=== PATIENT | female | born 1995 | race American Indian/Alaskan Native ===

== ENCOUNTER 2020-10-14 12:43 | Outpatient (CLI) | payer OTHER ==
[2020-10-14 13:05] VITALS: BP 121/67
[2020-10-14] MEDS ORDERED: LACTATED RINGERS 1,000 ML ONE (14:16)
[2020-10-14] MEDS ORDERED: LACTATED RINGERS 1,000 ML IV ONE (14:22)
--- NOTE | 2020-10-14 14:35 | Ultrasound Report ---
ULTRASOUND OBSTETRIC LIMITED ULTRASOUND BIOPHYSICAL PROFILE INDICATION / CLINICAL INFORMATION: decreased FM. Clinical Gestational Age (GA): 31.5 weeks.days COMPARISON: None available. FINDINGS: BREATHING MOVEMENT = 2 GROSS BODY MOVEMENT = 2 TONE = 2 QUALITATIVE AMNIOTIC FLUID VOLUME = 2 TOTAL BIOPHYSICAL SCORE = 8/8 HEART RATE (beats per minute): 164 AMNIOTIC FLUID INDEX (cm) = Largest pocket measures 4 cm. PRESENTATION: Cephalic. ADDITIONAL FINDINGS: None. IMPRESSION: 1. Biophysical Score = 8/8 Signer Name: Juan J Guerin MD Signed: 10/14/2020 2:31 PM Workstation Name: [email or web address]
[2020-10-14 14:44] LABS: Basophils % (Auto) 0.1 % (0.0-1.8); Eosinophils # (Auto) 0.1 K/mm3 (0.0-0.4); Eosinophils % (Auto) 0.7 % (0.0-4.3); Hematocrit 28.4 % (30.3-42.9); Hemoglobin 9.4 gm/dl (10.1-14.3); Lymphocytes # (Auto) 2.9 K/mm3 (1.2-5.4); Lymphocytes % (Auto) 14.2 % (13.4-35.0); Mean Corpuscular HGB Conc 33 % (30-34); Mean Corpuscular Volume 74 fl (79-97); Monocytes # (Auto) 1.7 K/mm3 (0.0-0.8); Monocytes % (Auto) 8.5 % (0.0-7.3); Platelet Count 197 K/mm3 (140-440); Red Blood Count 3.83 M/mm3 (3.65-5.03); Red Cell Distribution Width 15.2 % (13.2-15.2)
[2020-10-14 15:59] LABS: Bilirubin,Urine NEG (Negative); Blood,Urine NEG (Negative); Color,Urine Straw (Yellow); Protein,Urine <15 mg/dL mg/dL (Negative); Urobilinogen,Urine < 2.0 mg/dL (<2.0)
== END 2020-10-14 16:50 | disposition home or self-care (01) ==
LOC: TRG 12:43 → APU 12:44 → TRG 16:50
PROVIDERS: ATTEND Obstetrics & Gynecology
DX: O36.8130 Decreased fetal movements, third trimester, not applicable or unspecified (principal); O47.03 False labor before 37 completed weeks of gestation, third trimester; Z3A.31 31 weeks gestation of pregnancy
CPT/HCPCS: 36415; 59025; 76819; 81001; 85025; 96360; J7120

== ENCOUNTER 2020-11-09 18:55 | Outpatient (CLI) | payer OTHER ==
[2020-11-09 19:16] VITALS: BP 118/70
[2020-11-09] MEDS ORDERED: LACTATED RINGERS 500 ML IV ONE (19:19)
--- NOTE | 2020-11-09 20:42 | Ultrasound Report ---
US OB BPP wo non-stress INDICATION / CLINICAL INFORMATION: BPP r/t decreased FM. COMPARISON: None available. FINDINGS: Single, viable intrauterine . heart rate 145. Biophysical profile breathing movements: 2 movements: 2 posture and tone: 2 Amniotic fluid volume: 2 Total score 8/8 IMPRESSION: 1. Viable intrauterine . Biophysical profile score of 8/8. Signer Name: Keyshawn Luna MD Signed: 11/09/2020 8:38 PM Workstation Name: [id number]
== END 2020-11-09 20:14 | disposition home or self-care (01) ==
LOC: TRG 18:55 → APU 18:59 → TRG 20:14
PROVIDERS: ATTEND Obstetrics & Gynecology
DX: O36.8130 Decreased fetal movements, third trimester, not applicable or unspecified (principal); Z3A.39 39 weeks gestation of pregnancy
CPT/HCPCS: 59025; 76819

== ENCOUNTER 2020-11-12 07:58 | Outpatient (CLI) | payer OTHER ==
[2020-11-12] MEDS ORDERED: LACTATED RINGERS 1,000 ML IV ONE (08:07)
[2020-11-12 08:13] VITALS: BP 121/67
== END 2020-11-12 09:37 | disposition home or self-care (01) ==
LOC: TRG 07:58 → APU 07:59 → TRG 09:37
PROVIDERS: ATTEND Obstetrics & Gynecology
DX: O42.913 Preterm premature rupture of membranes, unspecified as to length of time between rupture and onset of labor, third trimester (principal); Z3A.34 34 weeks gestation of pregnancy
CPT/HCPCS: 36415; 59025; 84112

== ENCOUNTER 2020-12-08 06:19 | Outpatient (CLI) | payer OTHER ==
[2020-12-08] MEDS ORDERED: MORPHINE 4 MG/1 ML INJ IM ONE (07:16)
[2020-12-08] MEDS ORDERED: hydrOXYzine HCL 100 MG/2 ML INJ IM ONE (07:16)
[2020-12-08 07:52] VITALS: BP 118/65
== END 2020-12-08 09:21 | disposition home or self-care (01) ==
LOC: TRG 06:19 → APU 06:26 → TRG 09:21
PROVIDERS: ATTEND Obstetrics & Gynecology
DX: Z34.93 Encounter for supervision of normal pregnancy, unspecified, third trimester (principal); Z3A.38 38 weeks gestation of pregnancy
CPT/HCPCS: 59025